=== PATIENT | male | born 1975 | race Caucasian/White ===

== ENCOUNTER 2021-02-26 05:29 | Emergency (ER) | payer SELFPAY ==
[~2021-02-26] VITALS: Ht 177.8 cm; Wt 154.2 kg
[2021-02-26] MEDS ORDERED: fentaNYL INJ 100 MCG/2 ML AMP IVP ONE (06:00)
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
--- NOTE | 2021-02-26 07:02 | Diagnostic Imaging Report ---
INDICATION: Rib pain. COMPARISON: Left clavicle radiograph performed concurrently. TECHNIQUE: PA chest with 2 views left rib. FINDINGS: Please see report for left clavicle with details of the mid clavicular fracture. There is no acute displaced fracture in the left ribs. No pneumothorax or pleural effusion. Heart is normal in size. Lungs are clear. IMPRESSION: 1. No acute fracture of the left ribs. 2. No pneumothorax. 3. Please see report for the left clavicle for details of the clavicle fracture. Dictated by: Dictated on workstation # [id number]
[2021-02-26] MEDS ORDERED: OXYC1TAB11 PO (07:12)
[2021-02-26 07:56] VITALS: BP 182/100
== END 2021-02-26 07:55 | disposition home or self-care (01) ==
LOC: ER 05:32
DX: S42.022A Displaced fracture of shaft of left clavicle, initial encounter for closed fracture (principal); S80.212A Abrasion, left knee, initial encounter; I10 Essential (primary) hypertension; E66.01 Morbid (severe) obesity due to excess calories; Z68.42 Body mass index [BMI] 45.0-49.9, adult; V89.2XXA Person injured in unspecified motor-vehicle accident, traffic, initial encounter
CPT/HCPCS: 71101; 73000; 99284; A4565